=== PATIENT | female | born 1945 | race Caucasian/White ===

== ENCOUNTER → 2018-03-23 | Outpatient (CLI) | payer MEDICARE, OTHER ==
--- NOTE | 2018-03-23 20:01 | US ---
EXAM DESCRIPTION: Breast,Right: Ultrasound CLINICAL HISTORY: 72 yearsFemaleBREAST LUMP. "Feels like lateral left breast is enlarging." "I might have cat scratch fever." There is a lump under my arm, near my Right breast." COMPARISON: Digital 2-D/3-D diagnostic bilateral mammography on this visit. TECHNIQUE: Transcutaneous scanning of the right breast utilizing zhu-scale and Doppler modes. Scanning performed by the value advisor and Dr. Suarez. FINDINGS: Imaging of the retroareolar right breast. Some ducts are noted. No distinct solid mass or cyst. No large calcifications or parenchymal edema. No nipple retraction. No abnormal vascularity. Scanning of the right lateral axilla at the junction of the right arm on the undersurface. No distinct solid mass or cyst. No large calcifications or parenchymal edema. No skin changes. No abnormal vascularity. IMPRESSION: 1. Bi-Rads Category 2: Benign. 2. Please refer to digital bilateral diagnostic 3-D and 2-D mammogram examination and report on this visit. The FINDINGS and the FOLLOW-UP plan were reviewed in person with the patient after the examination. Written communication explaining the IMPRESSION and FOLLOW-UP will be mailed to the patient and referring care provider. Electronically signed by: Mayank Suarez MD 03/23/2018 8:00 PM CDT
--- NOTE | 2018-03-27 11:41 | MAM ---
EXAM DESCRIPTION: 3D Diagnostic, Bilateral: Digital Mammography CLINICAL HISTORY: 72 yearsFemaleBREAST MASS "Feels like lateral left breast is enlarging." "I might have cat scratch fever." There is a lump under my arm, near my Right breast.". COMPARISON: Ultrasound of the right breast following this examination. 2-D digital screening bilateral study 06/03/2016 Report from prior examination also reviewed. TECHNIQUE: Bilateral CC LM MLO projection full-field images, 3-D tomosynthesis digital mammographic technique. CAD not utilized. FINDINGS: The breast parenchymal density pattern is: Scattered areas of fibroglandular density. No skin thickening or nipple retraction bilateral solitary microcalcifications and groups of microcalcifications which have a benign appearance. Also coarse calcifications and bilateral vascular calcifications. Bilateral axillary lymph nodes. Minimal focal asymmetry retroareolar right breast. Not well seen on the prior study. No mass density or suspicious microcalcifications. No new focal, stellate mass or density, focal asymmetry , and no suspicious microcalcifications left breast. ULTRASOUND: Imaging of the retroareolar right breast. Some ducts are noted. No distinct solid mass or cyst. No large calcifications or parenchymal edema. No nipple retraction. No abnormal vascularity. Scanning of the right lateral axilla at the junction of the right arm on the undersurface. No distinct solid mass or cyst. No large calcifications or parenchymal edema. No skin changes. No abnormal vascularity. IMPRESSION: BI-RADS CATEGORY: 2 - BENIGN FINDINGS. FOLLOW UP: Routine digital bilateral screening, one year interval from March 2018. Written communication explaining the IMPRESSION and follow-up, will be mailed to the patient and referring health care provider. According to the [employer], yearly mammograms are recommended starting at age 40 and continuing as long as a woman is in good health. Any breast change noted on a breast self-exam should be reported promptly to the patient's healthcare provider. Breast MRI is recommended for women with an approximately 20-25% or greater lifetime risk of breast cancer, including women with a strong family history of breast or ovarian cancer and women who have been treated for Hodgkin's disease. A negative mammographic report should not delay tissue diagnosis in patients with significant clinical history or physical findings. Extremely dense breast tissue limits the sensitivity of digital mammography. Electronically signed by: Mayank Suarez MD 03/27/2018 11:40 AM CDT
== END ==
LOC: MAMMO 09:37
PROVIDERS: ATTEND Internal Medicine
DX: N60.11 Diffuse cystic mastopathy of right breast (principal); R92.1 Mammographic calcification found on diagnostic imaging of breast
CPT/HCPCS: 76641; 77066; G0279

== ENCOUNTER → 2019-08-08 | Outpatient (CLI) | payer OTHER ==
--- NOTE | 2019-08-09 21:17 | MAM ---
EXAM DESCRIPTION: 3D Diagnostic, Bilateral: Digital Mammography CLINICAL HISTORY: 74 yearsFemaleLUMP pain in left breast with lumpy feeling, no personal history of breast cancer. Mother with breast cancer age 70. Remote family history of breast cancer. Menarche age 12. First childbirth age 24. Hysterectomy age 45. HRT 25 years ago.. Lifetime risk of developing breast cancer (Tyrer-Cuzick model) percentage is 12.1. COMPARISON: prior. No prior reports available.. TECHNIQUE: Bilateral LM, CC, and MLO projection full-field images, digital mammographic tomosynthesis technique. Bilateral 2-D digital full-field MLO images: LM, CC, and MLO projections. CAD not available. FINDINGS: The breast parenchymal density pattern is: Scattered areas of fibroglandular density. No skin thickening or nipple retraction bilateral vascular calcifications. Bilateral solitary calcifications. Bilateral mole markers. Bilateral axillary lymph nodes. Bilateral groups of benign type calcifications. No new focal, stellate mass or density, focal asymmetry , and no suspicious microcalcifications bilaterally. Stable mammograms compared to prior study, taking into account differences in mammographic technique IMPRESSION: Benign exam. BIRAD CATEGORY: 2 BENIGN FINDINGS. RECOMMENDATIONS: FOLLOW UP: Routine digital bilateral mammographic screening, one year interval from July 2019. Written communication explaining the IMPRESSION and follow-up, will be mailed to the patient and referring health care provider. According to the [employer], yearly mammograms are recommended starting at age 40 and continuing as long as a woman is in good health. Any breast change noted on a breast self-exam should be reported promptly to the patient's healthcare provider. Breast MRI is recommended for women with an approximately 20-25% or greater lifetime risk of breast cancer, including women with a strong family history of breast or ovarian cancer and women who have been treated for Hodgkin's disease. A negative mammographic report should not delay tissue diagnosis in patients with significant clinical history or physical findings. Extremely dense breast tissue limits the sensitivity of digital mammography. Electronically signed by: Mayank Suarez MD 08/09/2019 9:15 PM PROJECTOR OPERATOR
== END ==
LOC: US 11:00
PROVIDERS: ATTEND Family Medicine
DX: N63.20 Unspecified lump in the left breast, unspecified quadrant (principal)
CPT/HCPCS: 77066; G0279